=== PATIENT | male | born 1945 | race Caucasian/White ===

== ENCOUNTER → 2017-07-11 | Outpatient (CLI) | payer MEDICARE, OTHER ==
--- NOTE | 2017-07-11 15:09 | RADIOLOGY REPORT (SQ) ---
EXAM DESCRIPTION: CT LUNG CANCER SCREENING COMPLETED DATE/TIME: 07/11/2017 12:37 pm REASON FOR STUDY: NICOTINE DEPENDENCE F17.200 NICOTINE DEPENDENCE, UNSPECIFIED, UNCOMPLICATED F17.2 NICOTINE DEPENDENCE * DO NOT USE * Has the patient had a Chest CT scan within the past year? No Was the patient offered tobacco cessation counseling? Yes Was the patient engaged in shared decision making for this test? Yes Does the patient have signs or symptoms of Lung Cancer? No Is the patient a smoker? Gas How many packs per year? 450 How many years since quitting smoking? Not applicable Patients age: 72 COMPARISON: None. TECHNIQUE: Low Dose CT scan performed of the chest without intravenous contrast for purposes of scre ening for lung cancer. Images reviewed with lung, soft tissue and bone windows. Reconstructed coron al and sagittal MPR images reviewed. All images stored on PACS. All CT scanners at this facility use dose modulation, iterative reconstruction, and/or weight based d osing when appropriate to reduce radiation dose to as low as reasonably achievable (ALARA). [facility]: Dose Right [facility]: CareDose [facility]: Dose Right [facility]: Teradose 4D [facility]: [employer] RADIATION DOSE: Up-to-date CT equipment and radiation dose reduction techniques were employed. CTDIv ol: 2.1 mGy. DLP: 92 mGy-cm. mGy. . LIMITATIONS: No technical limitations. FINDINGS: LUNG NODULES: Benign calcified granulomas less than 3 mm in size in the right lung apex a nd anterior right upper lobe. REMAINING LUNGS AND PLEURA: No pleural effusions or calcifications. No pneumothorax. Significant diffuse obstructive lung disease. No scarring or interstitial changes. HILAR AND MEDIASTINAL STRUCTURES: No identified masses. No abnormal nodes. HEART AND VASCULAR STRUCTURES: No aortic aneurysm. No pericardial effusion. No cardiac devices. CORONARY ARTERY CALCIFICATIONS: Mild to moderate calcifications. UPPER ABDOMEN, THYROID, BONES, OTHER SOFT TISSUES: Calcified gallstones without gallbladder wall thic kening or pericholecystic fluid. IMPRESSION: BENIGN FINDINGS IN THE LUNGS. Obstructive lung disease. Calcified gallstones. LUNGRADS: LUNGRADS: 2 BENIGN APPEARANCE OR BEHAVIOR. NODULES WITH A VERY LOW LIKELIHOOD OF BECOMING A CLINICALLY ACTIVE CANCER DUE TO SIZE OR LACK OF GROWTH. MODIFIER: NONE. RECOMMENDATION: Continue annual screening with LDCT in 12 months. COMMENT: CRITERIA: Solid nodule(s): < 6 mm; new < 4 mm. Part solid nodule(s): < 6 mm total diameter on baseline screening. Non solid nodule(s) (GGN): < 20 mm OR ? 20 and unchanged or slowly growing. Category 3 or 4 modules unchanged for ? 3 months. TECHNICAL DOCUMENTATION: JOB ID: [id number] Quality ID # [id number]: Final reports with documentation of one or more dose reduction techniques (e.g., Au tomated exposure control, adjustment of the mA and/or kV according to patient size, use of iterative reconstruction technique) 2010 [employer]
== END ==
LOC: RAD 12:20
PROVIDERS: ATTEND Physician Assistant Medical
DX: F17.200 Nicotine dependence, unspecified, uncomplicated (principal)
CPT/HCPCS: G0297

== ENCOUNTER 2017-08-28 09:22 | Inpatient (IN) | payer MEDICARE, OTHER ==
[2017-08-21 09:10] LABS: HEMATOCRIT 43.4 % (37.9-51.0); HEMOGLOBIN 15.1 g/dL (13.5-17.0); HGB HCT DIFFERENCE 1.9; MEAN CORPUSCULAR HEMOGLOBIN 27.9 pg (27.0-33.4); MEAN CORPUSCULAR HGB CONC 34.9 g/dL (32.0-36.0); MEAN CORPUSCULAR VOLUME 80 fl (80-97); RED BLOOD COUNT 5.42 10^6/uL (4.35-5.55); RED CELL DISTRIBUTION WIDTH 14.9 % (11.5-14.0); WHITE BLOOD COUNT 6.8 10^3/uL (4.0-10.5)
[2017-08-21 09:35] LABS: ANION GAP 9 (5-19); BLOOD UREA NITROGEN 15 mg/dL (7-20); CALCIUM 10.2 mg/dL (8.4-10.2); CARBON DIOXIDE 30 mmol/L (22-30); CHLORIDE 101 mmol/L (98-107); GLUCOSE 91 mg/dL (75-110); POTASSIUM 4.7 mmol/L (3.6-5.0); SODIUM 140.2 mmol/L (137-145)
[2017-08-21 10:01] LABS: CARCINOEMBRYONIC ANTIGEN 1.6 ng/mL (<3.0)
--- NOTE | 2017-08-21 18:16 | EKG REPORT ---
SEVERITY:- NORMAL ECG - SINUS RHYTHM : Confirmed by: Kelly Delong MD 21-Aug-2017 18:15:17
[~2017-08-28 09:22] MED LIST: DEXAMETHASONE SOD PHOSPHATE INJ 4 MG/1 ML VIAL ONE; ERTAPENEM SODIUM 1 GM in NORMAL SALINE 50 ML IV PRN; GLYCOPYRROLATE INJ 0.4 MG/2 ML VIAL ONE; LACTATED RINGERS 1000 ML IV PRN; LIDOCAINE 0.5% INJ-PF (5 MG/ML) 50 ML SDV SUBCUT PRN; NEOSTIGMINE METHYLSULFATE 10 MG/10 ML VIAL ONE; ONDANSETRON HCL INJ/PF 4 MG/2 ML SDV ONE; PHENYLEPHRINE HCL INJ/PF 10 MG/1 ML SDV ONE; ROCURONIUM BROMIDE INJ 50 MG/5 ML VIAL IV ONE; SUCCINYLCHOLINE CHLORIDE INJ 200 MG/10 ML VIAL ONE
[2017-08-28] MEDS ORDERED: ALBUTEROL SULFATE 0.083% NEB 2.5 MG/3 ML AMPUL NEB ONE (09:59)
[2017-08-28] MEDS ORDERED: FENTANYL CITRATE INJ/PF 250 MCG/5 ML AMPULE ONE ×2 (12:07→14:01)
[2017-08-28] MEDS ORDERED: HYDROMORPHONE HCL INJ/PF 2 MG/ML AMPULE ONE (12:07)
[2017-08-28] MEDS ORDERED: PROPOFOL INJ 200 MG/20 ML VIAL IV ONE (12:08)
[2017-08-28] MEDS ORDERED: ACETAMINOPHEN 100 ML IV ONE (12:08)
[2017-08-28] MEDS ORDERED: EPHEDRINE SULFATE INJ 50 MG/1 ML AMPULE ONE (12:08)
[2017-08-28] MEDS ORDERED: MIDAZOLAM 2 MG/2 ML INJ ONE (12:08)
[2017-08-28] MEDS ORDERED: BUPIVACAINE HCL 0.25 % INJ/PF (2.5 MG/1 ML) 30 ML VIAL ONE (12:35)
[2017-08-28] MEDS ORDERED: GLUCAGON,HUMAN RECOMB 1 MG INJ ONE (12:35)
[2017-08-28] MEDS ORDERED: ALBUTEROL SULFATE HFA (90 MCG/PUFF) 200 PUFF/8.5 GM MDI IH ONE (14:01)
[2017-08-28] MEDS ORDERED: OXYCODONE-ACETAMINOPHEN 5-325 MG TABLET PO PRN ×2 (15:33)
[2017-08-28] MEDS ORDERED: FENTANYL CITRATE INJ/PF 100 MCG/2 ML AMPUL IV PRN ×3 (15:33)
[2017-08-28] MEDS ORDERED: MEPERIDINE HCL/PF INJ 25 MG/1 ML DISP.SYRIN IV PRN (15:33)
[2017-08-28] MEDS ORDERED: PROMETHAZINE HCL INJ 25 MG/1 ML VIAL IV PRN ×2 (15:33)
[2017-08-28] MEDS ORDERED: DIPHENHYDRAMINE HCL 50 MG/ML VIAL IV PRN (15:33)
--- NOTE | 2017-08-28 15:53 | Operative Report ---
Operative Report DATE OF SURGERY: 08/28/17 Operative Report: Pre-op diagnosis: Sessile polyp in the transverse colon not amenable to endoscopic removal Post-op diagnosis: 1. Proximal transverse colon sessile polyp 2. Proximal descending colon polyps Surgery: Intraoperative colonoscopy with polypectomy and tattooing Medications: Patient was under general anesthesia for his colectomy Tissue removed: Colon polyps Procedure: Colonoscopy was performed intraoperatively. He is undergoing exploration to identify the transverse colon polyp but this could not be easily identified. The endoscope was already passed by Dr. Ortiz up to the cecum. I then started to withdraw the endoscope with detailed examination. Upon withdrawal the sessile 3 cm polyp was identified in the proximal transverse colon with old tattooing in the area. More ink was then injected at the polyp site and also at the opposite side of the polyp. 3 separate polyps measuring 6- 9 mm were identified in the proximal descending colon and they were all removed with a hot polypectomy snare. Findings Cecum: Normal Ascending colon: Normal Transverse colon: 3 cm sessile polyp with central scarring and depression Descending colon: Three 6-9 mm polyps removed by hot snare Sigmoid colon: Normal Rectum: Normal Plan: Proceed with colectomy. Repeat colonoscopy in 1-2 years OPERATION: .
[2017-08-28] MEDS ORDERED: MORPHINE SULFATE 10 MG/ML INJ ONE (17:13)
[2017-08-28] MEDS ORDERED: ONDANSETRON HCL INJ/PF 4 MG/2 ML SDV IV PRN (17:13)
[2017-08-28] MEDS ORDERED: GLUCAGON,HUMAN RECOMB 1 MG INJ SUBCUT PRN (17:13)
[2017-08-28] MEDS ORDERED: DEXTROSE 50%-WATER 25 GM/50 ML DISP.SYRIN IV PRN ×2 (17:13)
[2017-08-28] MEDS ORDERED: DEXTROSE 40% GEL 15 GM TUBE PO PRN ×2 (17:13)
[2017-08-28] MEDS: MORPHINE SULFATE 10 MG/ML INJ IV PRN ×4 (17:15→22:26)
--- NOTE | 2017-08-28 19:00 | Operative Report ---
Operative Report DATE OF SURGERY: 08/28/17 PREOPERATIVE DIAGNOSIS: Transverse colon polyp POSTOPERATIVE DIAGNOSIS: Hepatic flexure polyp. Descending colon polyps. OPERATION: Attempted laparoscopic partial colon resection, open hepatic flexure of the colon resection with colocolonic anastomosis. SURGEON: MARQUEZ SOLORIO ANESTHESIA: GA TISSUE REMOVED OR ALTERED: Hepatic flexure of the colon. Portion of omentum. COMPLICATIONS: None ESTIMATED BLOOD LOSS: 50 cc INTRAOPERATIVE FINDINGS: No Brenda ink evident upon exploratory laparoscopy. Intraoperative colonoscopy demonstrating 2 cm sessile polyp at the hepatic flexure. Also demonstrating 2 smaller sessile polyps at the descending colon. PROCEDURE: Informed consent was obtained. Patient was brought to the operating room placed on the operating table in supine position. After satisfactory induction of general anesthesia patient's abdomen was prepped and draped in the usual sterile fashion. A epigastric midline incision was made dissection carried out through the fascia and the peritoneal cavity was entered without difficulty. A laparoscopic hand port was inserted. Carrasco trocar was inserted through laparoscopic hand port. During the case total of four 5 mm trochars were used, one on the right abdomen 3 on the left abdomen. exploratory laparoscopy demonstrated normal-appearing liver normal-appearing anterior surface of the abdominal wall. the left colon was visualized it had no Brenda ink marking. transverse colon was visualized and had no Brenda ink marking. the right colon was visualized and it had no Brenda ink marking. Omentum overlying the transverse colon and the splenic flexure of the colon was mobilized and still I could not visualize any Brenda ink. The anterior surface of the hepatic flexure of the colon demonstrated no Brenda ink markings. With this finding intraoperative colonoscopy was performed. Dr. Barrett came in during this portion of the case to complete the colonoscopy. At the hepatic flexure of the colon there was a 2 cm sessile polyp consistent with his findings on prior colonoscopy. This region was Brenda inked 180 apart. At the descending colon there were 2 smaller sessile polyps which were polypectomied by Dr. Barrett-- please refer to his part of the dictation. The colon was decompressed. However at this point he had still residual air in the colon as well as air in the small bowel with distention. Continuation with a laparoscopic approach was too difficult with the bowel distention. Therefore the case was converted to an open procedure. All trochars were removed under the direct vision of the laparoscope to ensure that there were no bleeding from the trocar sites. The laparoscopic hand port incision was widened and the mid right colon and the hepatic flexure was totally mobilized and the Brenda ink was clearly evident at the hepatic flexure. The hepatic flexure of the colon was taken using a ANABELLE stapling device. The mesentery of the resected segment was taken immediately adjacent to the bowel. The remaining ends of the colon had excellent pulsations in their mesentery with no evidence of ischemia. The specimen was examined in pathology demonstrating that indeed there was a sessile polyp right next to Brenda ink marking. Bowel continuity was then re-created creating a side -to-side functional end-to-end anastomosis between the right colon and the transverse colon. The enterotomy created to introduced the stapling device was closed with a TA stapling device. Anastomosis appeared secure. Hemostasis appeared excellent. The mesenteric defect was closed with running Vicryl suture. The omentum that had been mobilized off of the transverse colon and the splenic flexure had a large hole that would have been an obstruction hazard therefore this portion of the omentum was resected. Hemostasis appeared excellent. Sponge needle and instrument counts were all correct. Fascia was closed with running PDS suture. Skin was closed with birgit. Marcaine was injected at the incision site. Patient tolerated procedure well with no apparent complications and was taken to the recovery area in stable condition.
--- NOTE | 2017-08-28 19:02 | PDOC PROGRESS REPORT ---
Subjective Progress Note for:: 08/28/17 Subjective:: Feels okay. Physical Exam Vital Signs: Temp Pulse Resp BP Pulse Ox 97.9 F 95 16 140/92 H 97 08/28/17 09:30 08/28/17 10:04 08/28/17 10:04 08/28/17 09:30 08/28/17 10:04 Intake & Output 08/27/17 08/28/17 08/29/17 06:59 06:59 06:59 Intake Total 3300 Output Total 400 Balance 2900 General appearance: PRESENT: no acute distress, cooperative Respiratory exam: PRESENT: clear to auscultation isaac Cardiovascular exam: PRESENT: RRR GI/Abdominal exam: PRESENT: other - Soft, mildly distended, appropriate tenderness. Extremities exam: PRESENT: other - No swelling Results Laboratory Results: 08/21/17 08:27 08/21/17 08:27 08/28/17 11:38 Blood Type O NEGATIVE Antibody Screen NEGATIVE Assessment & Plan - Diagnosis (1) Adenomatous colon polyp Qualifiers: Colon location: transverse Qualified Code(s): D12.3 - Benign neoplasm of transverse colon Is this a current diagnosis for this admission?: Yes Plan: At hepatic flexure. Status post segmental resection. Looks okay. Will await bowel function.
[2017-08-29 07:18] LABS: HEMATOCRIT 37.5 % (37.9-51.0); HEMOGLOBIN 12.5 g/dL (13.5-17.0); MEAN CORPUSCULAR HEMOGLOBIN 27.2 pg (27.0-33.4); MEAN CORPUSCULAR HGB CONC 33.4 g/dL (32.0-36.0); MEAN CORPUSCULAR VOLUME 82 fl (80-97); RED CELL DISTRIBUTION WIDTH 14.7 % (11.5-14.0); WHITE BLOOD COUNT 12.4 10^3/uL (4.0-10.5)
[2017-08-29 07:36] LABS: ANION GAP 8 (5-19); BLOOD UREA NITROGEN 15 mg/dL (7-20); CALCIUM 8.8 mg/dL (8.4-10.2); CARBON DIOXIDE 26 mmol/L (22-30); CHLORIDE 105 mmol/L (98-107); CREATININE RESULT 0.76 mg/dL (0.52-1.25); GLUCOSE 107 mg/dL (75-110); POTASSIUM 4.5 mmol/L (3.6-5.0); SODIUM 139.4 mmol/L (137-145)
[2017-08-29] MEDS: MORPHINE SULFATE 10 MG/ML INJ IV PRN ×4 (08:16→21:39)
--- NOTE | 2017-08-29 12:07 | PDOC PROGRESS REPORT ---
Subjective Progress Note for:: 08/29/17 Subjective:: Feels well. No complaints. Physical Exam Vital Signs: Temp Pulse Resp BP Pulse Ox 98.2 F 92 18 122/64 95 08/29/17 08:28 08/29/17 08:28 08/29/17 08:28 08/29/17 08:28 08/29/17 08:28 Pulse Oximeter Continuous Start: 08/28/17 20: 40 Freq: RTQ4 Status: Complete Document 08/28/17 20:41 STI (Rec: 08/28/17 20:41 STI [email or web address]) Pulse Oximetry Assessment Oxygen Saturation (92-100) 93 Oxygen Flow Rate (L/min) 2.0 Oxygen Delivery Method Nasal Cannula Fraction of Inspired Oxygen (FIO2) 28 Equipment Usage Initial Set Up Continuous Pulse Oximeter 24 Hour Charge Charge Now Continuous SpO2 Machine # N-3 Pulse Oximeter Continuous Start: 08/28/17 22: 14 Freq: RTQ4 Status: Active Document 08/29/17 03:57 STI (Rec: 08/29/17 03:57 STI [email or web address]) Pulse Oximetry Assessment Oxygen Saturation (92-100) 95 Oxygen Flow Rate (L/min) 2.0 Oxygen Delivery Method Nasal Cannula Fraction of Inspired Oxygen (FIO2) 28 Equipment Usage Equipment in Use Continuous SpO2 Machine # N-3 Intake & Output 08/28/17 08/29/17 08/30/17 06:59 06:59 06:59 Intake Total 4700 Output Total 1575 Balance 3125 Weight 73.2 kg General appearance: PRESENT: no acute distress, cooperative Respiratory exam: PRESENT: clear to auscultation isaac Cardiovascular exam: PRESENT: RRR GI/Abdominal exam: PRESENT: other - Soft, nondistended, appropriate tenderness to palpation. NG output is bilious. Skin exam: PRESENT: other - No swelling. Results Laboratory Results: 08/29/17 06:58 08/29/17 06:58 08/28/17 08/29/17 08/29/17 11:38 06:58 06:58 WBC 12.4 H RBC 4.60 Hgb 12.5 L Hct 37.5 L MCV 82 MCH 27.2 MCHC 33.4 RDW 14.7 H Plt Count 206 Sodium 139.4 Potassium 4.5 Chloride 105 Carbon Dioxide 26 Anion Gap 8 BUN 15 Creatinine 0.76 Est GFR ( Amer) > 60 Est GFR (Non-Af Amer) > 60 Glucose 107 Calcium 8.8 Blood Type O NEGATIVE Antibody Screen NEGATIVE Assessment & Plan - Diagnosis (1) Adenomatous colon polyp Qualifiers: Colon location: transverse Qualified Code(s): D12.3 - Benign neoplasm of transverse colon Is this a current diagnosis for this admission?: Yes Plan: At hepatic flexure. Status post segmental resection. Looks okay. Will await bowel function. MARY Forman. Encourage ambulation.
[2017-08-29] MEDS: NORMAL SALINE 1000 ML 1,000 ML IV PRN (12:13)
[2017-08-30] MEDS: MORPHINE SULFATE 10 MG/ML INJ IV PRN ×5 (03:41→23:33)
[2017-08-30] MEDS: NORMAL SALINE 1000 ML 1,000 ML IV PRN ×2 (07:46→18:56)
--- NOTE | 2017-08-30 08:22 | PDOC PROGRESS REPORT ---
Subjective Progress Note for:: 08/30/17 Subjective:: No complaints. Urinating well after Forman was pulled. Physical Exam Vital Signs: Temp Pulse Resp BP Pulse Ox 99.4 F 86 20 124/67 92 08/29/17 23:57 08/30/17 02:00 08/29/17 23:57 08/29/17 23:57 08/30/17 03:05 Pulse Oximeter Continuous Start: 08/28/17 20: 40 Freq: RTQ4 Status: Complete Document 08/28/17 20:41 STI (Rec: 08/28/17 20:41 STI [email or web address]) Pulse Oximetry Assessment Oxygen Saturation (92-100) 93 Oxygen Flow Rate (L/min) 2.0 Oxygen Delivery Method Nasal Cannula Fraction of Inspired Oxygen (FIO2) 28 Equipment Usage Initial Set Up Continuous Pulse Oximeter 24 Hour Charge Charge Now Continuous SpO2 Machine # N-3 Pulse Oximeter Continuous Start: 08/28/17 22: 14 Freq: RTQ4 Status: Active Document 08/30/17 03:05 EAL (Rec: 08/30/17 03:05 EAL [email or web address]) Pulse Oximetry Assessment Oxygen Saturation (92-100) 92 Oxygen Flow Rate (L/min) 2 Oxygen Delivery Method Nasal Cannula Fraction of Inspired Oxygen (FIO2) 28 Equipment Usage Equipment in Use Continuous SpO2 Machine # 3 Intake & Output 08/29/17 08/30/17 08/31/17 06:59 06:59 06:59 Intake Total 4700 3050 Output Total 1575 125 Balance 3125 2925 Weight 73.2 kg 76.9 kg General appearance: PRESENT: no acute distress, cooperative Respiratory exam: PRESENT: clear to auscultation isaac Cardiovascular exam: PRESENT: RRR GI/Abdominal exam: PRESENT: other - Soft, mildly distended, appropriate tenderness. No erythema. NG tube output is scant but it is still bilious. Extremities exam: PRESENT: other - No swelling and no tenderness Results Laboratory Results: 08/29/17 06:58 08/29/17 06:58 Assessment & Plan - Diagnosis (1) Adenomatous colon polyp Qualifiers: Colon location: transverse Qualified Code(s): D12.3 - Benign neoplasm of transverse colon Is this a current diagnosis for this admission?: Yes Plan: At hepatic flexure. Status post segmental resection. Await bowel function. Urine output has not been accurately recorded. Patient voiding well. Encourage ambulation.
[2017-08-31] MEDS: MORPHINE SULFATE 10 MG/ML INJ IV PRN ×4 (08:22→20:20)
--- NOTE | 2017-08-31 16:33 | PDOC PROGRESS REPORT ---
Subjective Progress Note for:: 08/31/17 Subjective:: Less pains of the incision site. No flatus yet. Physical Exam Vital Signs: Temp Pulse Resp BP Pulse Ox 98.0 F 87 14 133/69 H 96 08/31/17 14:43 08/31/17 14:43 08/31/17 14:43 08/31/17 14:43 08/31/17 14:43 Pulse Oximeter Continuous Start: 08/28/17 20: 40 Freq: RTQ4 Status: Complete Document 08/28/17 20:41 STI (Rec: 08/28/17 20:41 STI [email or web address]) Pulse Oximetry Assessment Oxygen Saturation (92-100) 93 Oxygen Flow Rate (L/min) 2.0 Oxygen Delivery Method Nasal Cannula Fraction of Inspired Oxygen (FIO2) 28 Equipment Usage Initial Set Up Continuous Pulse Oximeter 24 Hour Charge Charge Now Continuous SpO2 Machine # N-3 Pulse Oximeter Continuous Start: 08/28/17 22: 14 Freq: RTQ4 Status: Complete Document 08/30/17 08:20 HCR (Rec: 08/30/17 09:38 HCR [email or web address]) Pulse Oximetry Assessment Oxygen Saturation (92-100) 92 Oxygen Flow Rate (L/min) 3 Oxygen Delivery Method Nasal Cannula Equipment Usage Equipment in Use Continuous SpO2 Machine # 3 Intake & Output 08/30/17 08/31/17 09/01/17 06:59 06:59 06:59 Intake Total 3050 1500 Output Total 125 2175 Balance 2925 -675 Weight 76.9 kg 75.7 kg Exam: NG tube drainage is about 300 cc of light brownish fluid since last night. There might be a little bit of ice chips that account for the total amount of drainage. He seems to be initially congested and has been coughing. We will pull the NG tube out but keep him n.p.o. until he passes flatus. His abdomen is soft with minimal tenderness along the incision site. Results Laboratory Results: 08/29/17 06:58 08/29/17 06:58 Assessment & Plan - Time Time Spent with patient: 15-24 minutes - Inpatient Certification Medical Necessity: Need For IV Fluids, Risk of Complication if Not Cared For in Hospital - Plan Summary Plan Summary: #1 discontinue NG tube but keep n.p.o. 2. Continue with hydration. #3 possible start liquids in the morning especially if if he passes flatus.
[2017-09-01] MEDS: MORPHINE SULFATE 10 MG/ML INJ IV PRN ×5 (07:59→23:42)
[2017-09-01] MEDS: NORMAL SALINE 1000 ML 1,000 ML IV PRN ×2 (12:09→12:19)
[2017-09-01 12:57] LABS: ABSOLUTE EOSINOPHILS # (AUTO) 0.2 10^3/uL (0.0-0.6); ABSOLUTE LYMPHOCYTES (AUTO) 0.8 10^3/uL (0.5-4.7); ABSOLUTE MONOCYTES (AUTO) 0.8 10^3/uL (0.1-1.4); ABSOLUTE NEUT (AUTO) 5.1 10^3/uL (1.7-8.2); BASOPHILS % (AUTO) 0.6 % (0-2); EOSINOPHILS % (AUTO) 2.6 % (0-6); HEMATOCRIT 33.5 % (37.9-51.0); HEMOGLOBIN 11.4 g/dL (13.5-17.0); HGB HCT DIFFERENCE 0.7; LYMPHOCYTES % (AUTO) 11.7 % (13-45); MEAN CORPUSCULAR HEMOGLOBIN 27.5 pg (27.0-33.4); MEAN CORPUSCULAR HGB CONC 33.9 g/dL (32.0-36.0); MEAN CORPUSCULAR VOLUME 81 fl (80-97); MONOCYTES % (AUTO) 11.7 % (3-13); RED BLOOD COUNT 4.13 10^6/uL (4.35-5.55); RED CELL DISTRIBUTION WIDTH 14.6 % (11.5-14.0); SEGMENTED NEUTROPHILS % (AUTO) 73.4 % (42-78)
[2017-09-01 13:16] LABS: ANION GAP 14 (5-19); BLOOD UREA NITROGEN 14 mg/dL (7-20); CALCIUM 9.1 mg/dL (8.4-10.2); CARBON DIOXIDE 23 mmol/L (22-30); CHLORIDE 108 mmol/L (98-107); CREATININE RESULT 0.58 mg/dL (0.52-1.25); GLUCOSE 81 mg/dL (75-110); POTASSIUM 3.9 mmol/L (3.6-5.0); SODIUM 144.8 mmol/L (137-145)
[2017-09-02] MEDS: MORPHINE SULFATE 10 MG/ML INJ IV PRN ×2 (05:59→10:08)
[2017-09-02 10:17] LABS: ABSOLUTE EOSINOPHILS # (AUTO) 0.5 10^3/uL (0.0-0.6); ABSOLUTE LYMPHOCYTES (AUTO) 1.1 10^3/uL (0.5-4.7); ABSOLUTE NEUT (AUTO) 4.4 10^3/uL (1.7-8.2); BASOPHILS % (AUTO) 0.5 % (0-2); EOSINOPHILS % (AUTO) 6.8 % (0-6); HEMATOCRIT 31.1 % (37.9-51.0); HEMOGLOBIN 10.6 g/dL (13.5-17.0); HGB HCT DIFFERENCE 0.7; LYMPHOCYTES % (AUTO) 15.6 % (13-45); MEAN CORPUSCULAR HEMOGLOBIN 27.6 pg (27.0-33.4); MEAN CORPUSCULAR HGB CONC 34.2 g/dL (32.0-36.0); MEAN CORPUSCULAR VOLUME 81 fl (80-97); MONOCYTES % (AUTO) 14.3 % (3-13); RED BLOOD COUNT 3.84 10^6/uL (4.35-5.55); RED CELL DISTRIBUTION WIDTH 14.5 % (11.5-14.0); SEGMENTED NEUTROPHILS % (AUTO) 62.8 % (42-78)
[2017-09-02] MEDS ORDERED: MORPHINE SULFATE 10 MG/ML INJ IV PRN (15:32)
--- NOTE | 2017-09-02 15:34 | PDOC PROGRESS REPORT ---
Subjective Progress Note for:: 09/02/17 Subjective:: had bm Physical Exam Vital Signs: Temp Pulse Resp BP Pulse Ox 98.0 F 71 15 122/63 97 09/02/17 12:03 09/02/17 12:03 09/02/17 12:03 09/02/17 12:03 09/02/17 12:03 Pulse Oximeter Continuous Start: 08/28/17 20: 40 Freq: RTQ4 Status: Complete Document 08/28/17 20:41 STI (Rec: 08/28/17 20:41 STI [email or web address]) Pulse Oximetry Assessment Oxygen Saturation (92-100) 93 Oxygen Flow Rate (L/min) 2.0 Oxygen Delivery Method Nasal Cannula Fraction of Inspired Oxygen (FIO2) 28 Equipment Usage Initial Set Up Continuous Pulse Oximeter 24 Hour Charge Charge Now Continuous SpO2 Machine # N-3 Pulse Oximeter Continuous Start: 08/28/17 22: 14 Freq: RTQ4 Status: Complete Document 08/30/17 08:20 HCR (Rec: 08/30/17 09:38 HCR [email or web address]) Pulse Oximetry Assessment Oxygen Saturation (92-100) 92 Oxygen Flow Rate (L/min) 3 Oxygen Delivery Method Nasal Cannula Equipment Usage Equipment in Use Continuous SpO2 Machine # 3 Intake & Output 09/01/17 09/02/17 09/03/17 06:59 06:59 06:59 Intake Total 1100 3087 420 Output Total 1200 1020 300 Balance -100 2067 120 Weight 75.7 kg 75.9 kg GI/Abdominal exam: PRESENT: soft - soft still distended Results Laboratory Results: 09/02/17 10:05 09/01/17 12:39 09/02/17 10:05 WBC 7.0 RBC 3.84 L Hgb 10.6 L Hct 31.1 L MCV 81 MCH 27.6 MCHC 34.2 RDW 14.5 H Plt Count 292 Seg Neutrophils % 62.8 Lymphocytes % 15.6 Monocytes % 14.3 H Eosinophils % 6.8 H Basophils % 0.5 Absolute Neutrophils 4.4 Absolute Lymphocytes 1.1 Absolute Monocytes 1.0 Absolute Eosinophils 0.5 Absolute Basophils 0.0 Assessment & Plan - Plan Summary Plan Summary: Ilesu better still has some distention monitor today
[2017-09-02] MEDS: HYDROCODONE/ACETAMINOPHEN 5-325 MG TABLET PO PRN ×2 (15:38→21:38)
[2017-09-03] MEDS: HYDROCODONE/ACETAMINOPHEN 5-325 MG TABLET PO PRN (05:17)
--- NOTE | 2017-09-03 12:53 | PDOC PROGRESS REPORT ---
Subjective Progress Note for:: 09/03/17 Subjective:: Feels well. Tolerating a diet having bowel movements. Pain under good control. Physical Exam Vital Signs: Temp Pulse Resp BP Pulse Ox 98.3 F 69 16 128/65 H 96 09/03/17 07:24 09/03/17 07:24 09/03/17 07:24 09/03/17 07:24 09/03/17 07:24 Pulse Oximeter Continuous Start: 08/28/17 20: 40 Freq: RTQ4 Status: Complete Document 08/28/17 20:41 STI (Rec: 08/28/17 20:41 STI [email or web address]) Pulse Oximetry Assessment Oxygen Saturation (92-100) 93 Oxygen Flow Rate (L/min) 2.0 Oxygen Delivery Method Nasal Cannula Fraction of Inspired Oxygen (FIO2) 28 Equipment Usage Initial Set Up Continuous Pulse Oximeter 24 Hour Charge Charge Now Continuous SpO2 Machine # N-3 Pulse Oximeter Continuous Start: 08/28/17 22: 14 Freq: RTQ4 Status: Complete Document 08/30/17 08:20 HCR (Rec: 08/30/17 09:38 HCR [email or web address]) Pulse Oximetry Assessment Oxygen Saturation (92-100) 92 Oxygen Flow Rate (L/min) 3 Oxygen Delivery Method Nasal Cannula Equipment Usage Equipment in Use Continuous SpO2 Machine # 3 Intake & Output 09/02/17 09/03/17 09/04/17 06:59 06:59 06:59 Intake Total 3087 1206 Output Total 1020 825 Balance 2067 381 Weight 75.9 kg 77 kg General appearance: PRESENT: no acute distress, cooperative Respiratory exam: PRESENT: clear to auscultation isaac Cardiovascular exam: PRESENT: RRR GI/Abdominal exam: PRESENT: other - Soft, nondistended, nontender to palpation. Clean dry and intact. Extremities exam: PRESENT: other - No swelling. Results Laboratory Results: 09/02/17 10:05 09/01/17 12:39 Assessment & Plan - Diagnosis (1) Adenomatous colon polyp Qualifiers: Colon location: transverse Qualified Code(s): D12.3 - Benign neoplasm of transverse colon Is this a current diagnosis for this admission?: Yes Plan: At hepatic flexure. Status post segmental resection. Doing well. Will DC home. Follow-up later this week for staple removal.
--- NOTE | 2017-09-03 13:14 | DISCHARGE SUMMARY E ---
Discharge Summary NAME: ZEN BALLESTEROS : 1945 AGE: 72Y ADMITTED: 08/28/2017 DISCHARGED: 09/03/2017 DISCHARGE DIAGNOSIS: Hepatic flexure 3 cm adenomatous polyp. Adenomatous polyps of the descending colon. PROCEDURE PERFORMED DURING HOSPITALIZATION: Attempted laparoscopic partial colon resection, conversion to open hepatic flexure of the colon resection with colo-colo anastomosis and intraoperative colonoscopy with polypectomies, all performed on 08/28/2017. HOSPITAL COURSE: The patient underwent the above-mentioned surgery. He did well postoperatively. He had a gradual resumption of bowel function. He was tolerating a diet well with good pain control and a soft, nontender abdomen at the time of discharge. He was noted with a decrease of his hematocrit down to 31.1 postoperatively. However, he was having excellent urine output with diminishing creatinine, all consistent with equilibration and hemodilution. Patient is now being discharged to home in good condition. He will follow up with me this Sunday. He is encouraged to stay active at home but avoid strenuous activity. DISCHARGE MEDICATIONS: 1. Colace 100 mg p.o. b.i.d. 2. Percocet 1 p.o. every 4 hours p.r.n. pain. DICTATING PHYSICIAN: RICK SOLORIO M.D. [id number] Y#: [id number] ID: [id number] JOB#: [id number] ACCT: [id number] cc:RICK SOLORIO M.D. >
[2017-09-03 13:58] LABS: HEMATOCRIT 33.7 % (37.9-51.0); HEMOGLOBIN 11.5 g/dL (13.5-17.0); HGB HCT DIFFERENCE 0.8; MEAN CORPUSCULAR HEMOGLOBIN 27.3 pg (27.0-33.4); MEAN CORPUSCULAR VOLUME 80 fl (80-97); RED CELL DISTRIBUTION WIDTH 14.2 % (11.5-14.0); WHITE BLOOD COUNT 6.1 10^3/uL (4.0-10.5)
[2017-09-03 14:02] VITALS: BP 137/69
== END 2017-09-03 17:00 | disposition home or self-care (01) | DRG 330 ==
LOC: INOR 09:22 → 4S 19:40
PROVIDERS: ADMIT Surgery; ATTEND Surgery
PROC: 0DBM8ZX Excision of Descending Colon, Via Natural or Artificial Opening Endoscopic, Diagnostic (ICD-10-PCS; 2017-08-28)
PROC: 3E0F73Z Introduction of Anti-inflammatory into Respiratory Tract, Via Natural or Artificial Opening (ICD-10-PCS; 2017-08-28)
PROC: 0D9670Z Drainage of Stomach with Drainage Device, Via Natural or Artificial Opening (ICD-10-PCS; 2017-08-28)
PROC: 0DBL0ZZ Excision of Transverse Colon, Open Approach (ICD-10-PCS; principal; 2017-08-28 11:30)
DX: D12.3 Benign neoplasm of transverse colon (principal); K56.7 Ileus, unspecified; D12.4 Benign neoplasm of descending colon; F17.210 Nicotine dependence, cigarettes, uncomplicated; Z79.899 Other long term (current) drug therapy; Z80.0 Family history of malignant neoplasm of digestive organs; Z82.49 Family history of ischemic heart disease and other diseases of the circulatory system; Z80.9 Family history of malignant neoplasm, unspecified
CPT/HCPCS: 36415; 790; 80048; 82378; 85025; 85027; 86850; 86900; 86901; 88305; 88307; 93005; 93010; 94640; 94762; J0131; J0330; J1100; J1170; J1335; J1610; J2250; J2270; J2370; J2405; J2704; J3010; J3490; J7030